=== PATIENT | female | born 1955 | race Caucasian/White ===

== ENCOUNTER → 2017-10-21 | Outpatient (CLI) | payer OTHER ==
--- NOTE | ~2017-10-21 | S ---
[facility] [email or web address] [address] SURGICAL PATH RPT PROCEDURE Name: RAZIA ENGEL Room #: REG [facility] M.R.#: [id number] Admission: 10/21/17 Date of : 51 Discharge: Report #: [id number] Path Case #: [id number] PATHOLOGY REPORT COLLECTION DATE: 10/21/2017 RECEIVED DATE: 10/21/2017 SUBMITTING PHYS: Dr. Wilner Vital OTHER PHYS: Dr. Jackson Rivera SPECIMEN(S) RECEIVED: A.Polyp at ascending colon * * * * * * * * * * * * FINAL DIAGNOSIS: "Polyp at ascending colon", biopsy: - Tubular adenoma; no high grade dysplasia. (CLW:mmtomasa; 10/22/2017) PATHOLOGIST: Jacquie Hill M.D. REPORT ELECTRONICALLY SIGNED BY: Jacquie Hill M.D. DATE/TIME: 10/22/2017 14:41 * * * * * * * * * * * * GROSS PATHOLOGY: The specimen is received in formalin, labeled "Razia Engel and polyp at ascending colon", are three carter soft tissues ranging from 0.1 cm up to 0.4 cm and measuring 0.4 x 0.3 x 0.1 cm in aggregate, the specimen is entirely submitted in A1. (SWS; 10/21/2017) CLINICAL HISTORY: Rectal bleeding, colon polyp INITIAL CPT CODE(S): A; 66384 Professional services performed by [facility] at [facility] [place] [address] Technical services performed by [facility] at [address] [place] [address], [address], [place] [address]. [facility] [address] [place] [address] SURGICAL PATH RPT PROCEDURE Name: RAZIA ENGEL Room #: REG CHRIS Estes#: [id number] Admission: 10/21/17 Date of : 51 Discharge: Report #: [id number] Path Case #: [id number] [place] [address] PHONE: [phone] DIRECTOR: Fuad Miller M.D. * * * END OF REPORT * * *
== END | disposition home or self-care (01) ==
LOC: GI 08:16
DX: D12.2 Benign neoplasm of ascending colon (principal); K57.30 Diverticulosis of large intestine without perforation or abscess without bleeding; K64.8 Other hemorrhoids; K64.4 Residual hemorrhoidal skin tags; Z90.49 Acquired absence of other specified parts of digestive tract; Z98.890 Other specified postprocedural states
CPT/HCPCS: 62110; 62900